=== PATIENT | female | born 1960 | race Hispanic/Latino ===

== ENCOUNTER 2024-05-27 13:21 | Emergency (ER) | payer OTHER ==
[~2024-05-27] VITALS: Ht 149.9 cm; Wt 77.1 kg
--- NOTE | 2024-05-27 14:49 | HMCIMG ---
KNEE 3VWS LT REASON: left knee pain/swelling TECHNIQUE: 3 views were obtained. FINDINGS: There is no evidence of fracture or dislocation. There is no joint effusion. There is suprapatellar fullness consistent with a moderate joint effusion. There is no evidence of a radiopaque foreign body. IMPRESSION: 1. Probable moderate joint effusion, otherwise negative.
[2024-05-27] MEDS ORDERED: KETO10TA2 PO (15:16)
--- NOTE | 2024-05-27 15:26 | ERN ---
General Chief Complaint: Knee Injury/Swelling Stated Complaint: LEFT KNEE PAIN X 2 DAYS Time Seen by MD: 13:24 Time Seen by Midlevel: 13:24 Source: patient History of Present Illness Initial Comments Patient is a 64-year-old female with a past medical history of hypertension presenting to the ER for evaluation of left knee swelling that started two days ago. Patient reports a similar episode years ago and was diagnosed with a knee effusion however it went away on its own. She denies any fevers, chills, or any other symptoms at this time. She also denies any surrounding redness to her left knee. Allergies: Coded Allergies: No Known Allergies (Unverified Allergy, Unknown, 05/27/24) Past Medical History Past Medical History: Hypertension Past Surgical History: None ROS Dictation CONSTITUTIONAL: Negative except for HPI HEAD/FACE: Negative except for HPI EENT: Negative except for HPI RESPIRATORY: Negative except for HPI GASTROINTESTINAL/ABDOMINAL: Negative except for HPI GENITOURINARY: Negative except for HPI MUSCULOSKELETAL: Negative except for HPI INTEGUMENTARY: Negative except for HPI NEUROLOGICAL/PSYCH: Negative except for HPI HEMATOLOGIC/LYMPHATIC: Negative except for HPI All Systems Negative, Except as noted above. 13 point review of systems assessed and all negative except for above. Physical Exam Physical Exam Dictation Vital Signs reviewed General Appearance: Alert, oriented x 3, no acute distress, well developed, nourished. Head and Face: non-traumatic. Eyes: PERRL, pink conjunctivas, eyelid no trauma, anterior chamber with arcus senilis. Ears: Pinnas intact and no signs of trauma or erythema ear canals clear and no discharge TM no erythema Nose: No discharge, no bleeding. Oropharynx: Mouth normal, tongue pink, pharynx clear,no erythema, tonsils no exudates, no abscesses noted, mucous membrane moist Neck: Supple, non-tender, no thyromegaly, no masses, no JVD, no bruits Breast:Deferred Chest:No tenderness, no crepitus, no paradoxical movement, no retractions Lungs:Clear, well-ventilated, symmetric, no rales, no wheezing, no rhonchi, no stridor, good breath sounds bilaterally Heart: Regular rate, regular rhythm, no murmur, no gallops Vascular: no peripheral edema, Abdomen: Soft, positive bowel sounds, nondistended, no guarding, nontender, no rebound, no masses no hepatomegaly, no splenomegaly, no Forman's sign, no hernias. Rectal: Deferred Genital: Deferred Neurological: Normal speech, motor function intact, sensory function intact Musculoskeletal: Neck nontender, full range of motion, back nontender, full range of motion, Extremities: Moderate amount of swelling to the left knee however patient has full range of motion, distal pulses intact, there is no surrounding erythema or induration to the left knee Skin: Color pink, dry, no turgor, no rash, no lacerations, no abrasions, no contusions. Lymphatic: Deferred MDM MDM: Patient is a 64-year-old female with a past medical history of hypertension presenting to the ER for evaluation of left knee swelling that started two days ago. Patient reports a similar episode years ago and was diagnosed with a knee effusion however it went away on its own. She denies any fevers, chills, or any other symptoms at this time. She also denies any surrounding redness to her left knee. On physical examination there is moderate amount of swelling to the left knee however patient has full range of motion, distal pulses intact, there is no surrounding erythema or induration to the left knee. X-ray of the left knee shows moderate joint effusion but no evidence of a fracture. I discussed imaging with the patient. I advised that she will need to follow up with her primary care doctor and possibly an orthopedic surgeon for outpatient e valuation. Patient was placed on a knee immobilizer and was discharged home. All of her questions were answered. Differential diagnosis: Cellulitis, knee effusion, fracture There are no social concerns with this patient. Prescription drug management Prescriptions will include: Toradol Medical management and examination interpretation discussions were had by me with other qualified healthcare professionals as indicated for the patient's care. ED Course Orders Procedure Category Date Status Time Knee 3vws Lt RAD 05/27/24 Resulted 13:37 Vital Signs Date Time Temp Pulse Resp B/P (MAP) Pulse Ox O2 Delivery O2 Flow Rate FiO2 05/27/24 13:22 98.1 75 16 159/88 99 Room Air 0 [place] [id number] [place] [id number] IMAGING REPORT Signed PATIENT: BRANDY HAWKINS MR#: [id number] : 1960 SEX: F AGE: 64 LOCATION: [facility] ORDER 37 STATUS: REG ER REPORT#: [id number] SERVICE 36 REASON: left knee pain/swelling ORDERING PHYSICIAN: CESAR KLINE PROCEDURE: KNEE 3V LT - KNEE 3VWS LT KNEE 3VWS LT REASON: left knee pain/swelling TECHNIQUE: 3 views were obtained. FINDINGS: There is no evidence of fracture or dislocation. There is no joint effusion. There is suprapatellar fullness consistent with a moderate joint effusion. There is no evidence of a radiopaque foreign body. IMPRESSION: 1. Probable moderate joint effusion, otherwise negative. DICTATED BY: JOANNA NERI MD DATE: 05/27/241445 ELECTRONICALLY SIGNED BY: JOANNA NERI MD DATE: 05/27/241448 DX & DISP Disposition: Discharge Departure Impression: Primary Impression: Knee effusion, left Condition: Stable Scripts Ketorolac Tromethamine (Ketorolac Tromethamine) 10 Mg Tablet 10 MG PO BID for 5 Days, #10 TAB Prov: CESAR KLINE 05/27/24 Additional Instructions: Knee x-ray shows a moderate effusion. This is an accumulation of fluid in the joint. You will need to see an boarding specialist for further evaluation. If you develop any redness around your knee or fevers you will need to return to the ER for further evaluation. I have given you multiple orthopedic surgeons names. You may follow up with either one of them. I have given you a prescription for ketorolac which should improve your pain over the next couple of days. Referrals: KACEY KENYON MD (PCP) KEVIN WALTON MD, VISHWAS B MD TUCKER, WILLIAM A DO Time of Disposition: 15:15 I have reviewed the case, and I agree with, Diagnosis and Plan I performed the substantive portion of the visit. I have reviewed and personally made and approve the management plan that is documented in the note by myself or the CANDIDO. I acknowledge for responsibility for the patient's management plan. CESAR KLINE May 27, 2024 15:26
[2024-05-27 15:30] VITALS: BP 147/81; PULSE 75; RESP 16; TEMP 98.1; O2SAT 98
== END 2024-05-27 16:11 | disposition home or self-care (01) ==
LOC: EDH 13:21
DX: M25.462 Effusion, left knee (principal); I10 Essential (primary) hypertension; X58.XXXA Exposure to other specified factors, initial encounter; Y93.89 Activity, other specified; Y92.89 Other specified places as the place of occurrence of the external cause; Y99.8 Other external cause status
CPT/HCPCS: 29505; 73562; 99283